=== PATIENT | male | born 1995 | race Caucasian/White ===

== ENCOUNTER 2018-12-06 03:13 | Emergency (ER) | payer OTHER ==
[~2018-12-06] VITALS: Ht 175.3 cm; Wt 81.7 kg
[2018-12-06] MEDS ORDERED: TRIAMCINOLONE A15 G1 TOP (03:53)
== END 2018-12-06 03:45 | disposition home or self-care (01) ==
LOC: ED 03:13
DX: S06.0X9A Concussion with loss of consciousness of unspecified duration, initial encounter (principal); F10.129 Alcohol abuse with intoxication, unspecified; Y04.0XXA Assault by unarmed brawl or fight, initial encounter
CPT/HCPCS: 99284